=== PATIENT | female | born 1960 | race Caucasian/White ===

== ENCOUNTER → 2016-08-03 | Outpatient (CLI) | payer BC | END | disposition home or self-care (01) | LOC: C.LABMFLN 16:24 | PROVIDERS: ATTEND Family Medicine | DX: R35.0 Frequency of micturition (principal) ==

== ENCOUNTER → 2016-08-08 | Outpatient (CLI) | payer BC ==
[2016-08-08 18:53] LABS: BLOOD UREA NITROGEN 17 mg/dl (7-18); BUN/CREATININE RATIO 20.5 (10-20); CALCIUM 9.3 mg/dl (8.5-10.1); CARBON DIOXIDE 33 mmol/L (21-32); CHLORIDE 102 mmol/L (98-107); CREATININE 0.83 mg/dl (0.60-1.20); GLUCOSE 80 mg/dl (70-99); POTASSIUM 3.9 mmol/L (3.5-5.1); SODIUM 141 mmol/L (136-145)
[2016-08-08 19:03] LABS: PHOSPHORUS 3.6 mg/dl (2.5-4.9)
== END | disposition home or self-care (01) ==
LOC: C.LABMFLN 13:54
PROVIDERS: ATTEND Family Medicine
DX: E03.9 Hypothyroidism, unspecified (principal); I95.1 Orthostatic hypotension

== ENCOUNTER → 2016-08-11 | Outpatient (CLI) | payer BC ==
--- NOTE | 2016-08-11 17:25 | EEG Procedure Note ---
EEG Procedure Note Date of Service Aug 11, 2016. Start / End Times Start Time: 1:51 PM End Time: to 11 PM Referring Physician Fanny Malik MD History This is a 56-year-old female who presents after a syncopal collapse. EEG for further evaluation of possible seizure etiology. Pertinent home medications: No antiepileptic medications are sedating medications reported Description This is a 21 electrode EEG with a single channel dedicated to limited EKG. The electrodes were placed in accordance with the International 10-20 system. At the start of the recording the patient was in an awake state. Background was well organized and composed of symmetric mixed alpha and beta frequencies. There was a symmetric well-formed moderate amplitude 10-11 Hz posterior dominant rhythm that was reactive to eye opening and closure. Hyperventilation was not done. Intermittent photic stimulation at various frequencies produced no abnormalities. Drowsiness was indicated by loss of muscle artifact and slowing of the background rhythm. There was no sleep transients. During the awake and drowsy state there was noted to be occasional intermittent theta slowing in the right posterior head region. Interpretation This is an abnormal routine EEG secondary to mild intermittent slowing in the right posterior head region. There was no electrographic seizures or epileptiform discharges. Clinical Correlation This EEG indicates a functional or structural cerebral dysfunction in the right posterior head region. An EEG does not rule out epilepsy if there is a strong clinical suspicion.
== END | disposition home or self-care (01) ==
LOC: C.NEUR 13:32
PROVIDERS: ATTEND Family Medicine
DX: R55 Syncope and collapse (principal)

== ENCOUNTER → 2016-08-16 | Outpatient (CLI) | payer BC ==
[~2016-08-16] MED LIST: GADAVIST IV PRN
--- NOTE | 2016-08-16 16:48 | DIAGNOSTIC IMAGING REPORT ---
MRI OF THE BRAIN WITHOUT AND WITH IV CONTRAST SEIZURE PROTOCOL CLINICAL HISTORY: R55 Syncope and [id number] EEG, [id number] COMPARISON STUDY: No previous studies for comparison. TECHNIQUE: Utilizing a 1.5 Marquita magnet and dedicated coil, multiplanar, multiecho imaging of the brain was performed pre and postcontrast administration. IV administration of 5 mL of Gadavist contrast was uneventful. Thin cut coronal T2 imaging was performed according to seizure protocol. FINDINGS: Several tiny foci of increased signal within the periventricular deep white matter regions. Diffusion-weighted images are unremarkable. Ventricular system is midline. Basal cisterns are unremarkable. There is no evidence for midline shift. Postcontrast images are negative for an enhancing lesion. IMPRESSION: Minimal chronic small vessel change. Otherwise negative MRI of the brain. Electronically signed by: Anthony Magaña M.D. 08/16/2016 4:46 PM Dictated Date/Time: 08/16/2016 4:43 PM
== END | disposition home or self-care (01) ==
LOC: C.MRI 15:58
PROVIDERS: ATTEND Family Medicine
DX: R55 Syncope and collapse (principal); R94.01 Abnormal electroencephalogram [EEG]

== ENCOUNTER → 2016-08-30 | Outpatient (CLI) | payer BC ==
--- NOTE | 2016-08-30 15:08 | DIAGNOSTIC IMAGING REPORT ---
BILATERAL CAROTID DOPPLER STUDY HISTORY: Mental status change R55 Syncope and [id number] EEG, [id number] COMPARISON: None. TECHNIQUE: Real-time, grayscale, and color Doppler sonography of the carotid arteries was performed. Imaging reviewed in the transverse and longitudinal planes. All measurements were calculated based on NASCET criteria. FINDINGS: Antegrade flow is seen in the bilateral vertebral arteries. The brachial pressures are hemodynamically similar. Mild plaque formation bilaterally The peak systolic velocity within the right ICA is 68. The right systolic ratio is 0.6. The peak systolic velocity within the left ICA is 86. The left systolic ratio is 0.7. IMPRESSION: No hemodynamically significant stenosis seen within the carotid arteries. Minimal/mild plaque formation bilaterally Electronically signed by: Anthony Magaña M.D. 08/30/2016 3:06 PM Dictated Date/Time: 08/30/2016 3:06 PM
== END | disposition home or self-care (01) ==
LOC: C.ULTR 13:34
PROVIDERS: ATTEND Psychiatry & Neurology Neurology
DX: R94.01 Abnormal electroencephalogram [EEG] (principal); R55 Syncope and collapse

== ENCOUNTER → 2017-01-18 | Outpatient (CLI) | payer BC ==
--- NOTE | 2017-01-19 14:03 | MAMMOGRAPHY REPORT ---
BILATERAL DIGITAL SCREENING MAMMOGRAM TOMOSYNTHESIS WITH CAD: 01/18/2017 CLINICAL HISTORY: Routine screening. Patient has no complaints. TECHNIQUE: Breast tomosynthesis in addition to standard 2D mammography was performed. Current study was also evaluated with a Computer Aided Detection (CAD) system. COMPARISON: Comparison is made to exams dated: 01/13/2016 mammogram, 01/07/2015 mammogram, 01/13/2010 robert mogram, 01/19/2011 mammogram, 01/25/2012 mammogram, and 02/14/2013 mammogram - [facility] er. BREAST COMPOSITION: The tissue of both breasts is heterogeneously dense, which may obscure small mas ses. FINDINGS: No suspicious masses, calcifications, or areas of architectural distortion are noted in ei ther breast. There has been no significant interval change compared to prior exams. Scattered bilater al benign-appearing calcifications are not significantly changed. IMPRESSION: ACR BI-RADS CATEGORY 2: BENIGN There is no mammographic evidence of malignancy. A 1 year screening mammogram is recommended. The pa tient will receive written notification of the results. Approximately 10% of breast cancers are not detected with mammography. A negative mammographic report should not delay biopsy if a clinically suggestive mass is present. Ciera Shelton M.D. /:01/19/2017 07:38:12 [employer] Labor: Mago CUEVAS)(M), [facility] letter sent: Normal 1/2 BI-RADS Code: ACR BI-RADS Category 2: Benign
== END | disposition home or self-care (01) ==
LOC: C.MAMM 16:57
PROVIDERS: ATTEND Family Medicine
DX: Z12.31 Encounter for screening mammogram for malignant neoplasm of breast (principal)

== ENCOUNTER → 2017-01-30 | Outpatient (CLI) | payer BC ==
[2017-01-30 14:03] LABS: CHOLESTEROL/HDL RATIO 5.5
== END | disposition home or self-care (01) ==
LOC: C.LABMFLN 07:18
PROVIDERS: ATTEND Family Medicine
DX: E78.5 Hyperlipidemia, unspecified (principal)

== ENCOUNTER → 2017-07-10 | Outpatient (CLI) | payer BC | END | disposition home or self-care (01) | LOC: C.LABMFLN 07:11 | PROVIDERS: ATTEND Family Medicine | DX: E78.5 Hyperlipidemia, unspecified (principal) ==

== ENCOUNTER → 2018-01-24 | Outpatient (CLI) | payer BC ==
--- NOTE | 2018-01-25 15:40 | MAMMOGRAPHY REPORT ---
BILATERAL DIGITAL SCREENING MAMMOGRAM TOMOSYNTHESIS WITH CAD: 01/24/2018 CLINICAL HISTORY: Routine screening. Patient has no complaints. TECHNIQUE: Bilateral CC and MLO 2D and tomosynthesis images were obtained. Current study was also ev aluated with a Computer Aided Detection (CAD) system. COMPARISON: Comparison is made to exams dated: 01/18/2017 mammogram, 01/13/2016 mammogram, 01/07/2015 robert mogram, 01/03/2014 mammogram, 08/14/2013 mammogram, and 02/14/2013 mammogram - [facility] BREAST COMPOSITION: The tissue of both breasts is heterogeneously dense, which may obscure small mass es. FINDINGS: There are possible clustered microcalcifications in the left upper outer posterior breast f or which additional spot magnification views are recommended. No other suspicious mass, architectural distortion or cluster of microcalcifications is seen. IMPRESSION: ACR BI-RADS CATEGORY 0: INCOMPLETE EVALUATION: NEED ADDITIONAL IMAGING EVALUATION The possible clustered microcalcifications in the left upper outer breast need additional evaluation. The patient will be called to schedule an appointment. Some breast cancers are not detected with mammography. A negative mammographic report should not tom y biopsy if a clinically suggestive mass is present. Tonia Grewal M.D. ay/:01/24/2018 17:09:31 [employer] Chief Scientist: RT Cris(Domi)(M)(BD), [facility] letter sent: Addl Imaging 0 BI-RADS Code: ACR BI-RADS Category 0: Incomplete Evaluation: Need Additional Imaging Evaluation
== END | disposition home or self-care (01) ==
LOC: C.MAMM 16:44
PROVIDERS: ATTEND Family Medicine
DX: Z12.31 Encounter for screening mammogram for malignant neoplasm of breast (principal); R92.0 Mammographic microcalcification found on diagnostic imaging of breast

== ENCOUNTER → 2018-02-02 | Outpatient (CLI) | payer BC ==
--- NOTE | 2018-02-02 14:29 | MAMMOGRAPHY REPORT ---
UNILATERAL LEFT DIGITAL DIAGNOSTIC MAMMOGRAM: 02/02/2018 CLINICAL HISTORY: Callback from screening mammogram for left breast calcifications. TECHNIQUE: Spot magnification left CC and ML views were obtained. COMPARISON: Comparison is made to exams dated: 01/24/2018 mammogram, 01/18/2017 mammogram, 01/13/2016 robert mogram, 01/07/2015 mammogram, 01/03/2014 ultrasound, and 08/14/2013 ultrasound - [facility] nter. BREAST COMPOSITION: The tissue of left breast is heterogeneously dense, which may obscure small missy s. FINDINGS: Spot magnification views demonstrate faint punctate calcifications seen in a regional distribution th roughout the left upper outer quadrant. The calcifications do not appear significantly changed bambi red to multiple prior exams such as the 2013 and 2012 exams, when accounting for differences in mammo graphic technique currently using Beam. equipment, previously using Thwapr agreement). Additionally, a t least one of the calcifications demonstrates layering on the lateral view suggestive of milk of ron cium. Given the morphology and distribution and given the probable stability for many years, the ron cifications are probably benign. IMPRESSION: ACR-BI-RADS CATEGORY 3: PROBABLY BENIGN Regional faint punctate calcifications throughout the left upper outer quadrant are likely stable com pared to multiple prior exams including the 2012 exam, and are probably benign. Recommend follow-up diagnostic tomosynthesis mammograms of the left breast in 6 months to confirm stability on spot magni fication views. The patient has been verbally notified of the results. Some breast cancers are not detected with mammography. A negative mammographic report should not tom y biopsy if a clinically suggestive mass is present. Ciera Shelton M.D. ah/:02/02/2018 10:56:22 Quoter: RT Giselle(R)(M), [facility] letter sent: Follow Up Recommended 3 BI-RADS Code: ACR-BI-RADS Category 3: Probably Benign
== END | disposition home or self-care (01) ==
LOC: C.MAMM 10:09
PROVIDERS: ATTEND Family Medicine
DX: R92.1 Mammographic calcification found on diagnostic imaging of breast (principal)

== ENCOUNTER 2021-12-12 08:52 | Inpatient (IN) ==
[2021-12-12] MEDS ORDERED: SODIUM CHLORIDE 0.9% 1000ML 1,000 ML IV STA (09:22)
[2021-12-12] MEDS ORDERED: ONDANSETRON INJ 2 MG/ML 2 ML VIAL IV STA (09:22)
[2021-12-12] MEDS ORDERED: MoRPHine SULFATE 4 MG/ML 1 ML CARP\\VIAL IV STA (09:22)
[2021-12-12 09:33] LABS: Basophils # (auto) 0.03 K/uL (0-0.2); Basophils % (auto) 0.3 %; Eosinophils # (auto) 0.09 K/uL (0-0.5); Hematocrit (blood only) 41.3 % (37-47); Hemoglobin 13.7 g/dL (12.0-16.0); Immature Granulocytes # (auto) 0.02 K/uL (0.00-0.02); Immature Granulocytes % (auto) 0.2 %; Lymphocytes # (auto) 1.16 K/uL (1.2-3.4); Lymphocytes % (auto) 13.1 %; Mean Corpuscular Hemoglobin 31.9 pg (25-34); Mean Corpuscular Hgb Conc 33.2 g/dL (32-36); Mean Corpuscular Volume 96.3 fL (80-100); Mean Platelet Volume 10.4 fL (7.4-10.4); Monocytes % (auto) 6.8 %; Neutrophils # (auto) 6.98 K/uL (1.4-6.5); Neutrophils % (auto) 78.6 %; Platelet Count 262 K/uL (130-400); RDW Coefficient of Variation 12.3 % (11.5-14.5); RDW Standard Deviation 42.9 fL (36.4-46.3); Red Blood Count 4.29 M/uL (4.2-5.4); White Blood Count 8.88 K/uL (4.8-10.8)
[2021-12-12 09:42] LABS: Albumin Globulin Ratio 1.2 (0.9-2); Albumin Level 4.2 gm/dl (3.4-5.0); BUN Creatinine Ratio 19.7 (10-20); Bilirubin,Total 0.5 mg/dl (0.2-1.0); Calcium 9.9 mg/dl (8.5-10.1); Creatinine Clr Calc Pharmacy 80.7 ml/min; Est GFR (African American) 110.5 ml/min; Est GFR (Non-African American) 95.3 ml/min; Globulin 3.4 gm/dl (2.5-4.0); Potassium 4.2 mmol/L (3.5-5.1); Total Protein 7.6 gm/dl (6.0-8.3)
[2021-12-12] MEDS ORDERED: OPTIRAY 320 100ml IV ONE (09:53)
--- NOTE | 2021-12-12 10:11 | CT Scan Report ---
CT OF THE ABDOMEN AND PELVIS WITH CONTRAST CLINICAL HISTORY: Lower abdominal pain. Diverticulitis. COMPARISON STUDY: None. TECHNIQUE: Following IV administration of 93 mL of Optiray, axial images of the abdomen and pelvis we re obtained from the lung bases to the proximal femurs. Images were reviewed in the axial, sagittal, and coronal planes. IV contrast was administered without complication. Automated exposure control wa s utilized for the study. A dose lowering technique was utilized adhering to the principles of ALARA . CT DOSE: 260.05 mGy.cm FINDINGS: Lung bases are unremarkable. No pneumatosis, free air or portal venous gas is present. Live r, spleen, adrenal glands, kidneys are unremarkable. There is no biliary or pancreatic ductal dilatat ion. Several small hypodense lesions within the pancreas measure near water attenuation. The largest is a 1.3 cm lesion within the pancreatic body on axial image 103 of 396. The appendix is surgically a bsent. There is extensive sigmoid diverticulosis. Note is made of wall thickening of the mid to dista l sigmoid colon with moderate pericolonic stranding and a small amount of fluid. There is an associat ed 1.4 cm rim-enhancing collection along the wall of the sigmoid colon consistent with a small absces s. No additional fluid collections are present. There is no extraluminal gas. Major vasculature is pa tent. There is no lymphadenopathy. No acute fracture or suspicious lesion within the visualized skele gior structures is present. There is severe disc space narrowing at L4-L5 with osteophytosis. IMPRESSION: 1. Findings consistent with acute sigmoid diverticulitis. Sigmoid colon wall thickening with moderate inflammation. Small 1.4 cm diverticular abscess. 2. A few small cystic pancreatic lesions. 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 Nonemergent patie nt pancreatic protocol MRI could be obtained. ACT 112: Negative or not required by law. Electronically signed by: Vladimir Garza M.D. 12/12/2021 10:08 AM
[2021-12-12] MEDS ORDERED: metroNIDAZOLE 500 MG/100 ML BAG IV STA (10:51)
[2021-12-12] MEDS ORDERED: CIPROFLOXACIN / D5W 400 MG/200 ML BAG IV STA (10:51)
[2021-12-12 10:54] LABS: Appearance Urine Clear (Clear); Bacteria Urine Automated 4+ (Negative); Bilirubin Urine Negative (Negative); Blood Urine Negative (Negative); Color Urine Yellow; Epithelial Cell Urine Auto 0-5 /lpf (0-5); Glucose Urine UA Negative (Negative); Ketones Urine Negative (Negative); Leukocyte Esterase Urine 2+ (Negative); Nitrite Urine Positive (Negative); Protein Urine Negative (Negative); RBC Urine Automated 0-4 /hpf (0-4); Specific Gravity Urine 1.039 (1.000-1.030); Urobilinogen Urine Negative (Negative); WBC Urine Automated >30 /hpf (0-5); pH Urine 8.5 (4.5-7.5)
--- NOTE | 2021-12-12 11:47 | History & Physical Report ---
Date of Service December 12, 2021 Assessment & Plan (1) Acute diverticulitis: Plan: CT a/p on admission showed "acute sigmoid diverticulitis with small 1.4 cm diverticular abscess. Seen by surgery when I was in room. No need for sx or drainage at this time. - Continue Cipro/Flagyl due to penicillin adverse reaction (hives to amoxicillin 4-5 years ago) - NPO with sips/chips; advance diet as tolerated - Pain and nausea control - Gen surg consulted; will follow (2) Hyperlipidemia: Plan: - Continue statin (3) Hypothyroidism: Plan: TSH was 1.7 in 02/2021. No signs/symptoms of hypo-/hyperthyroidism. - Continue home Synthroid 100 mcg (4) Anxiety: Plan: - Continue buspirone (5) DVT prophylaxis: Plan: Lovenox 40 mg SQ daily History of Present Illness Primary Care Provider: Fanny Malik MD 61yo F w/ hx of HLD and hypothyroidism who presents with acute diverticulitis. Has been having LLQ pain for about 2 1/2 weeks. Overall, it is intermittent, most often after eating or before defecation. Initially, she attributed it to lactose intolerance as the pain seemed worse after eating ice cream. She would eat it the night before, then wake up with sharp, cramping pains in the morning. It would be severe until she had a bowel movement, then resolve. She would take Advil for the pain as well. However, during the day, she could largely function normally. Yesterday, she ate ice cream and woke up this morning with another round of severe pain worse than priors which prompted her arrival to the ER. She denies nausea, vomiting, or change in appetite. She denies fevers/chills, sweats. She denies any hematochezia or melenic stools. She has had some mildly looser stools, but not consistently diarrhea. Allergies Allergy/AdvReac Type Severity Reaction Status Date / Time atorvastatin Allergy Verified 02/26/21 07:21 simvastatin Allergy Verified 02/26/21 07:21 amoxicillin AdvReac Mild Hives Verified 12/12/21 11:38 Home Medications Medication Instructions Recorded Confirmed Type calcium carbonate 600 mg-vitamin 1 cap PO DAILY #90 cap 02/07/19 02/26/21 Rx D3 10 mcg (400 unit) capsule levothyroxine 100 mcg tablet 100 mcg PO DAILY #90 tab 08/18/20 02/26/21 Rx buspirone 5 mg tablet 5 mg PO BID #180 tab 11/07/20 02/26/21 Rx rosuvastatin 5 mg tablet 5 mg PO HS #90 tab 08/23/21 Rx Past Med/Surg History Medical History Anxiety Colon polyps Hyperlipidemia Hypothyroidism Surgical History H/O colonoscopy 07/29/2019 repeat 5yrs H/O dilation and curettage History of ear surgery S/P appendectomy Family History Father Pure hypercholesterolemia Acute myocardial infarction Mother Diabetes Grandfather Prostate cancer Sister Glaucoma Social History Smoking Status: Never smoker Second Hand Exposure: No; Hx Alcohol Use: Yes (little) Hx Substance Use: No Preferred Language: Jamaican Visual Impairment: No Limitations Hearing Ability: Normal Director Building Required: No Beliefs That Will Affect Care: None marital status: Current Living Situation: Spouse current occupational status: employed How many Children do You have: 2 Feels Safe at Home: Yes Childhood Exposure to Second-Hand Smoke: No caffeine: Yes during the past year weight has: remained stable Dental Care, Regularly: Yes Physical Activity Frequency: 5-6 Times per Week Seatbelt Use: always Sunscreen Use: Yes Assistive Devices: Glasses Review of Systems Review of Systems: All systems reviewed & are unremarkable except as noted in HPI & below Physical Exam Constitutional: WD/WN, vitals as above Eyes: EOM intact bilaterally; no conjunctival abnormality ENMT: external ear and nose normal, oropharynx normal Neck: trachea midline, no thyromegaly normal visual inspection Respiratory: normal respiratory effort, lungs clear to auscultation no respiratory distress Cardiovascular: RRR, no murmur, no edema Gastrointestinal (Abdomen): Inspection/Auscultation: abdomen normal to inspection and + hypoactive bowel sounds; abdomen not distended Percussion/Palpation: + abdomen tender (Very mild, LLQ) and abdomen soft; no guarding and abdomen not rigid Musculoskeletal: no cyanosis or clubbing, extremities motor strength 5/5 Skin: no rashes, warm and dry Neurologic: moves all extremities and awake Psychiatric: Orientation: alert, oriented to person and cooperative Results & Data Results & Data ([facility]) Vital Signs (Past 12 Hours) Vital Signs Temp Pulse Pulse Resp BP BP Pulse Ox 12/12/21 11:00 79 16 132/76 97 12/12/21 09:22 95 12/12/21 08:52 37.2 C 86 84 16 147/73 H 147/73 H 97 Code Status & VTE Plan VTE Prophylaxis Plan VTE Prophylaxis will be ordered: Yes PG Care Time/CCT Total # of Minutes Spent Total Time Spent with Patient: Total time spent is greater than 50% in coordination of care (as documented) at patient's floor/unit and/or counseling patient: Coding Level of Care Code 58167 Initial Inpt Care Lvl 3 Diagnoses Acute diverticulitis K57.92 Hyperlipidemia E78.5 Hypothyroidism E03.9 Anxiety F41.9 DVT prophylaxis Z29.9
[2021-12-12 12:29] LABS: Adenovirus F 40/41 PCR Not Detected (NotDetected); Astrovirus PCR Not Detected (NotDetected); Campylobacter PCR Not Detected (NotDetected); Clostridium diff Toxin A/B PCR Not Detected (NotDetected); Cryptosporidium PCR Not Detected (NotDetected); Cyclospora cayetanensis PCR Not Detected (NotDetected); Entamoeba histolytica PCR Not Detected (NotDetected); Enteroaggregative E.coli(EAEC) Not Detected (NotDetected); Enteropathogenic E.coli (EPEC) Not Detected (NotDetected); Enterotoxigenic E.coli (ETEC) Not Detected (NotDetected); Giardia lamblia PCR Not Detected (NotDetected); Norovirus GI/GII PCR Not Detected (NotDetected); Plesiomonas shigelloides PCR Not Detected (NotDetected); Rotavirus A PCR Not Detected (NotDetected); Salmonella PCR Not Detected (NotDetected); Sapovirus PCR Not Detected (NotDetected); Shiga-like Toxin E.coli (STEC) Not Detected (NotDetected); Shigella/Enteroinvasive E.coli Not Detected (NotDetected); Vibrio cholerae PCR Not Detected (NotDetected); Vibrio species PCR Not Detected (NotDetected); Yersinia enterocolitica PCR Not Detected (NotDetected)
--- NOTE | 2021-12-12 13:15 | Surgery Consultation ---
Date of Consultation December 12, 2021 Assessment & Plan (1) Acute diverticulitis: 61-year-old woman with acute diverticulitis with microperforation and 1.4 cm abscess in the mesentery. No surgical intervention is required at this time. The abscess is too small to consider for IR drainage. We will place her on IV antibiotics and monitor. Clear liquid diet. We will follow along. If she fails to improve or worsens, she will need to be rescanned in would potentially be a candidate for interventional radiology drainage. We will continue to follow. History of Present Illness Reason for Consultation: Diverticulitis Requesting Physician: ED physician Attending Physician: ED physician History of Present Illness 61-year-old woman presents with 2-week history of on and off lower abdominal pain. She states the pain has been coming and going however got worse yesterda y. She did do a 20 mile bike ride yesterday as well. She denies fevers and chills. She denies nausea or vomiting. CT scan demonstrates diverticulitis with a small 1 cm to 1.5 cm abscess in the mesentery. No other complaints. Allergies Allergy/AdvReac Type Severity Reaction Status Date / Time atorvastatin Allergy Verified 02/26/21 07:21 simvastatin Allergy Verified 02/26/21 07:21 amoxicillin AdvReac Mild Hives Verified 12/12/21 11:38 Home Medications Medication Instructions Recorded Confirmed Type calcium carbonate 600 mg-vitamin 1 cap PO DAILY #90 cap 02/07/19 02/26/21 Rx D3 10 mcg (400 unit) capsule levothyroxine 100 mcg tablet 100 mcg PO DAILY #90 tab 08/18/20 02/26/21 Rx buspirone 5 mg tablet 5 mg PO BID #180 tab 11/07/20 02/26/21 Rx rosuvastatin 5 mg tablet 5 mg PO HS #90 tab 08/23/21 Rx Patient History Medical History Anxiety Colon polyps Hyperlipidemia Hypothyroidism Surgical History H/O colonoscopy 07/29/2019 repeat 5yrs H/O dilation and curettage History of ear surgery S/P appendectomy Family History Father Pure hypercholesterolemia Acute myocardial infarction Mother Diabetes Grandfather Prostate cancer Sister Glaucoma Social History Smoking Status: Never smoker Second Hand Exposure: No; Hx Alcohol Use: Yes (little) Hx Substance Use: No Preferred Language: [place] Visual Impairment: No Limitations Hearing Ability: Normal Hearing And Speech Assistant Required: No Beliefs That Will Affect Care: None marital status: Current Living Situation: Spouse current occupational status: employed How many Children do You have: 2 Feels Safe at Home: Yes Childhood Exposure to Second-Hand Smoke: No caffeine: Yes during the past year weight has: remained stable Dental Care, Regularly: Yes Physical Activity Frequency: 5-6 Times per Week Seatbelt Use: always Sunscreen Use: Yes Assistive Devices: Glasses Review of Systems Review of Systems: All systems reviewed & are unremarkable except as noted in HPI & below Physical Exam Constitutional: WD/WN, vitals as above Neck: trachea midline, no thyromegaly Respiratory: normal respiratory effort, lungs clear to auscultation Cardiovascular: RRR, no murmur, no edema Gastrointestinal (Abdomen): normal bowel sounds, soft, nontender, no hepatosplenomegaly Musculoskeletal: Extremities: no cyanosis and no clubbing Skin: no rashes, warm and dry Psychiatric: A+Ox3, euthymic affect Results & Data ([facility]) Vital Signs (Past 12 Hours) Vital Signs Temp Pulse Pulse Resp BP BP Pulse Ox 12/12/21 13:11 78 18 121/67 95 12/12/21 11:00 79 16 132/76 97 12/12/21 09:22 95 12/12/21 08:52 37.2 C 86 84 16 147/73 H 147/73 H 97 Laboratory Results 12/12/21 12/12/21 12/12/21 Range/Units 11:32 10:40 10:40 WBC (4.8-10.8) K/uL RBC (4.2-5.4) M/uL Hgb (12.0-16.0) g/dL Hct (37-47) % MCV (80-100) fL MCH (25-34) pg MCHC (32-36) g/dL RDW Std Deviation (36.4-46.3) fL RDW Coeff of Yessy (11.5-14.5) % Plt Count (130-400) K/uL MPV (7.4-10.4) fL Immature Gran % (Auto) % Neut % (Auto) % Lymph % (Auto) % [place] % (Auto) % Eos % (Auto) % Baso % (Auto) % Neut # (Auto) (1.4-6.5) K/uL Lymph # (Auto) (1.2-3.4) K/uL [place] # (Auto) (0.11-0.59) K/uL Eos # (Auto) (0-0.5) K/uL Baso # (Auto) (0-0.2) K/uL Immature Gran # (Auto) (0.00-0.02) K/uL Sodium (136-145) mmol/L Potassium (3.5-5.1) mmol/L Chloride (98-107) mmol/L Carbon Dioxide (21-32) mmol/L Anion Gap (3-11) BUN (6-23) mg/dl Creatinine (0.6-1.2) mg/dl Est Cr Clr Drug Dosing ml/min Est GFR ( Amer) ml/min Est GFR (Non-Af Amer) ml/min BUN/Creatinine Ratio (10-20) Glucose (70-99(Fasting)) mg/dl Calcium (8.5-10.1) mg/dl Total Bilirubin (0.2-1.0) mg/dl AST (13-39) U/L ALT (7-52) U/L Alkaline Phosphatase (34-104) U/L Total Protein (6.0-8.3) gm/dl Albumin (3.4-5.0) gm/dl Globulin (2.5-4.0) gm/dl Albumin/Globulin Ratio (0.9-2) Lipase (11-82) U/L Urine Color Yellow Urine Appearance Clear (Clear) Urine pH 8.5 H (4.5-7.5) Ur Specific [place] 1.039 H (1.000-1.030) Urine Protein Negative (Negative) Urine Glucose (UA) Negative (Negative) Urine Ketones Negative (Negative) Urine Blood Negative (Negative) Urine Nitrite Positive A (Negative) Urine Bilirubin Negative (Negative) Urine Urobilinogen Negative (Negative) Ur Leukocyte Esterase 2+ H (Negative) Urine WBC (Auto) >30 H (0-5) /hpf Urine RBC (Auto) 0-4 (0-4) /hpf U Hyaline Cast (Auto) 1-5 (0-5) /lpf U Epithel Cells (Auto) 0-5 (0-5) /lpf Urine Bacteria (Auto) 4+ H (Negative) Stl C. cayetanensis PCR Not Detected (NotDetected) Stool Rotavirus A PCR Not Detected (NotDetected) Stl Adenov F 40/41 PCR Not Detected (NotDetected) Stool Astrovirus (PCR) Not Detected (NotDetected) Stool Campylobacter PCR Not Detected (NotDetected) Stl C. diff Tox A/B PCR Not Detected (NotDetected) Stool Cryptosporidium PCR Not Detected (NotDetected) Stl E.coli Shiga Tox PCR Not Detected (NotDetected) Stl Enterotoxigenic E PCR Not Detected (NotDetected) Stool EPEC (PCR) Not Detected (NotDetected) Stool EAEC (PCR) Not Detected (NotDetected) Stl E. histolytica PCR Not Detected (NotDetected) Stool Giardia Lamblia PCR Not Detected (NotDetected) Stool Salmonella PCR Not Detected (NotDetected) Stool Sapovirus (PCR) Not Detected (NotDetected) Stl P. shigelloides PCR Not Detected (NotDetected) Stl Shigella/EIEC PCR Not Detected (NotDetected) St Y.enterocolitica PCR Not Detected (NotDetected) Stool Vibrio (PCR) Not Detected (NotDetected) Stl Vibrio cholerae PCR Not Detected (NotDetected) Stl Norovirus GI/GII PCR Not Detected (NotDetected) SARS-CoV-2, RNA, NAAT NEGATIVE (NEGATIVE) 12/12/21 12/12/21 Range/Units 09:14 09:14 WBC 8.88 (4.8-10.8) K/uL RBC 4.29 (4.2-5.4) M/uL Hgb 13.7 (12.0-16.0) g/dL Hct 41.3 (37-47) % MCV 96.3 (80-100) fL MCH 31.9 (25-34) pg MCHC 33.2 (32-36) g/dL RDW Std Deviation 42.9 (36.4-46.3) fL RDW Coeff of Yessy 12.3 (11.5-14.5) % Plt Count 262 (130-400) K/uL MPV 10.4 (7.4-10.4) fL Immature Gran % (Auto) 0.2 % Neut % (Auto) 78.6 % Lymph % (Auto) 13.1 % [place] % (Auto) 6.8 % Eos % (Auto) 1.0 % Baso % (Auto) 0.3 % Neut # (Auto) 6.98 H (1.4-6.5) K/uL Lymph # (Auto) 1.16 L (1.2-3.4) K/uL [place] # (Auto) 0.60 H (0.11-0.59) K/uL Eos # (Auto) 0.09 (0-0.5) K/uL Baso # (Auto) 0.03 (0-0.2) K/uL Immature Gran # (Auto) 0.02 (0.00-0.02) K/uL Sodium 140 (136-145) mmol/L Potassium 4.2 (3.5-5.1) mmol/L Chloride 101 (98-107) mmol/L Carbon Dioxide 32 (21-32) mmol/L Anion Gap 7 (3-11) BUN 13 (6-23) mg/dl Creatinine 0.66 (0.6-1.2) mg/dl Est Cr Clr Drug Dosing 80.7 ml/min Est GFR ( Amer) 110.5 ml/min Est GFR (Non-Af Amer) 95.3 ml/min BUN/Creatinine Ratio 19.7 (10-20) Glucose 75 (70-99(Fasting)) mg/dl Calcium 9.9 (8.5-10.1) mg/dl Total Bilirubin 0.5 (0.2-1.0) mg/dl AST 35 (13-39) U/L ALT 20 (7-52) U/L Alkaline Phosphatase 84 (34-104) U/L Total Protein 7.6 (6.0-8.3) gm/dl Albumin 4.2 (3.4-5.0) gm/dl Globulin 3.4 (2.5-4.0) gm/dl Albumin/Globulin Ratio 1.2 (0.9-2) Lipase 23 (11-82) U/L Urine Color Urine Appearance (Clear) Urine pH (4.5-7.5) Ur Specific [place] (1.000-1.030) Urine Protein (Negative) Urine Glucose (UA) (Negative) Urine Ketones (Negative) Urine Blood (Negative) Urine Nitrite (Negative) Urine Bilirubin (Negative) Urine Urobilinogen (Negative) Ur Leukocyte Esterase (Negative) Urine WBC (Auto) (0-5) /hpf Urine RBC (Auto) (0-4) /hpf U Hyaline Cast (Auto) (0-5) /lpf U Epithel Cells (Auto) (0-5) /lpf Urine Bacteria (Auto) (Negative) Stl C. cayetanensis PCR (NotDetected) Stool Rotavirus A PCR (NotDetected) Stl Adenov F 40/41 PCR (NotDetected) Stool Astrovirus (PCR) (NotDetected) Stool Campylobacter PCR (NotDetected) Stl C. diff Tox A/B PCR (NotDetected) Stool Cryptosporidium PCR (NotDetected) Stl E.coli Shiga Tox PCR (NotDetected) Stl Enterotoxigenic E PCR (NotDetected) Stool EPEC (PCR) (NotDetected) Stool EAEC (PCR) (NotDetected) Stl E. histolytica PCR (NotDetected) Stool Giardia Lamblia PCR (NotDetected) Stool Salmonella PCR (NotDetected) Stool Sapovirus (PCR) (NotDetected) Stl P. shigelloides PCR (NotDetected) Stl Shigella/EIEC PCR (NotDetected) St Y.enterocolitica PCR (NotDetected) Stool Vibrio (PCR) (NotDetected) Stl Vibrio cholerae PCR (NotDetected) Stl Norovirus GI/GII PCR (NotDetected) SARS-CoV-2, RNA, NAAT (NEGATIVE) Diagnostic Findings CT OF THE ABDOMEN AND PELVIS WITH CONTRAST CLINICAL HISTORY: Lower abdominal pain. Diverticulitis. COMPARISON STUDY: None. TECHNIQUE: Following IV administration of 93 mL of Optiray, axial images of the abdomen and pelvis were obtained from the lung bases to the proximal femurs. Images were reviewed in the axial, sagittal, and coronal planes. IV contrast was administered without complication. Automated exposure control was utilized for the study. A dose lowering technique was utilized adhering to the principles of ALARA. CT DOSE: 260.05 mGy.cm FINDINGS: Lung bases are unremarkable. No pneumatosis, free air or portal venous gas is present. Liver, spleen, adrenal glands, kidneys are unremarkable. There is no biliary or pancreatic ductal dilatation. Several small hypodense lesions within the pancreas measure near water attenuation. The largest is a 1.3 cm lesion within the pancreatic body on axial image 103 of 396. The appendix is surgically absent. There is extensive sigmoid diverticulosis. Note is made of wall thickening of the mid to distal sigmoid colon with moderate pericolonic stranding and a small amount of fluid. There is an associated 1.4 cm rim- enhancing collection along the wall of the sigmoid colon consistent with a small abscess. No additional fluid collections are present. There is no extraluminal gas. Major vasculature is patent. There is no lymphadenopathy. No acute fracture or suspicious lesion within the visualized skeletal structures is present. There is severe disc space narrowing at L4-L5 with osteophytosis. IMPRESSION: 1. Findings consistent with acute sigmoid diverticulitis. Sigmoid colon wall thickening with moderate inflammation. Small 1.4 cm diverticular abscess. 2. A few small cystic pancreatic lesions. 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 Nonemergent patient pancreatic protocol MRI could be obtained.
[2021-12-12] MEDS ORDERED: ONDANSETRON INJ 2 MG/ML 2 ML VIAL IV PRN (16:31)
[2021-12-12] MEDS ORDERED: MoRPHine SULFATE 2 MG/ML CARP IV PRN (16:31)
[2021-12-12] MEDS ORDERED: MoRPHine SULFATE 4 MG/ML 1 ML CARP\\VIAL IV PRN (16:31)
[2021-12-12] MEDS ORDERED: ACETAMINOPHEN 325 MG TAB PO PRN (16:31)
[2021-12-12] MEDS: SODIUM CHLORIDE 0.9% 1000ML 1,000 ML IV SCH (17:06)
[2021-12-12] MEDS: metroNIDAZOLE 500 MG/100 ML BAG IV SCH (17:39)
[2021-12-12] MEDS: busPIRone 5 MG TAB PO SCH (20:20)
[2021-12-12] MEDS: ROSUVASTATIN CALCIUM 5 MG TAB PO SCH (20:20)
[2021-12-12] MEDS: CIPROFLOXACIN / D5W 400 MG/200 ML BAG IV SCH (23:18)
[2021-12-13] MEDS: metroNIDAZOLE 500 MG/100 ML BAG IV SCH ×3 (01:37→17:22)
[2021-12-13 06:09] LABS: Hemoglobin 12.3 g/dL (12.0-16.0); Mean Corpuscular Hemoglobin 32.4 pg (25-34); Mean Corpuscular Hgb Conc 33.2 g/dL (32-36); Mean Corpuscular Volume 97.4 fL (80-100); Mean Platelet Volume 10.3 fL (7.4-10.4); Platelet Count 252 K/uL (130-400); RDW Coefficient of Variation 12.1 % (11.5-14.5); RDW Standard Deviation 42.9 fL (36.4-46.3); White Blood Count 6.59 K/uL (4.8-10.8)
[2021-12-13 06:14] LABS: BUN Creatinine Ratio 21.8 (10-20); Calcium 8.9 mg/dl (8.5-10.1); Creatinine Clr Calc Pharmacy 96.8 ml/min; Est GFR (African American) 117.3 ml/min; Est GFR (Non-African American) 101.2 ml/min; Magnesium 1.9 mg/dl (1.7-2.4)
[2021-12-13] MEDS: LEVOTHYROXINE SODIUM 100 MCG TABLET PO SCH (06:21)
[2021-12-13] MEDS: SODIUM CHLORIDE 0.9% 1000ML 1,000 ML IV SCH ×2 (06:22→22:02)
[2021-12-13] MEDS: ENOXAPARIN INJ 40 MG/0.4 ML SYR SQ SCH (06:46)
--- NOTE | 2021-12-13 08:42 | Hospitalist Progress Note ---
Date of Service December 13, 2021 Assessment & Plan (1) Acute diverticulitis: Plan: Doing better, start clear liquids, continue conservative therapy (2) Hyperlipidemia: Plan: - Continue statin (3) Hypothyroidism: Plan: TSH was 1.7 in 02/2021. No signs/symptoms of hypo-/hyperthyroidism. - Continue home Synthroid 100 mcg (4) Anxiety: Plan: - Continue buspirone (5) DVT prophylaxis: Plan: Lovenox 40 mg SQ daily Admission and Anticipated Discharge Date Admission Date: December 12, 2021 Subjective Follow-up of abdominal pain, feels better, less pain Physical Exam Physical Exam: Constitutional and general: No acute distress, looks biologic age Head and face: No puffiness, atraumatic Eyes: No scleral icterus, extraocular movements normal Neck: Supple, no JVD Musculoskeletal: No acute joint swelling, no bony abnormalities Skin/dermatologic/integument: No rash, no purpura Hematologic and lymphatic: pallor +, no petechia Gastrointestinal/abdomen: Nondistended, soft, nonacute Neurologic: Cranial nerves intact, nonfocal Psychiatry: Awake, alert, pleasant, communicative Cardiovascular: Heart rhythm regular, no rub, no murmur, no gallop Respiratory: Chest movements equal, no use of accessory muscles, no adventitious sounds Extremities: No edema, no cyanosis Results & Data Results & Data ([facility]) Vital Signs (Past 12 Hours) Vital Signs Temp Pulse Resp BP Pulse Ox 12/13/21 07:34 36.8 C 82 18 124/74 97 12/12/21 21:16 36.7 C 77 16 115/73 94 Laboratory Results Laboratory Results - last 24 hr 12/12/21 12/12/21 12/12/21 09:14 09:14 10:40 WBC 8.88 RBC 4.29 Hgb 13.7 Hct 41.3 MCV 96.3 MCH 31.9 MCHC 33.2 RDW Std Deviation 42.9 RDW Coeff of Yessy 12.3 Plt Count 262 MPV 10.4 Immature Gran % (Auto) 0.2 Neut % (Auto) 78.6 Lymph % (Auto) 13.1 [place] % (Auto) 6.8 Eos % (Auto) 1.0 Baso % (Auto) 0.3 Neut # (Auto) 6.98 H Lymph # (Auto) 1.16 L [place] # (Auto) 0.60 H Eos # (Auto) 0.09 Baso # (Auto) 0.03 Immature Gran # (Auto) 0.02 Sodium 140 Potassium 4.2 Chloride 101 Carbon Dioxide 32 Anion Gap 7 BUN 13 Creatinine 0.66 Est Cr Clr Drug Dosing 80.7 Est GFR ( Amer) 110.5 Est GFR (Non-Af Amer) 95.3 BUN/Creatinine Ratio 19.7 Glucose 75 Calcium 9.9 Magnesium Total Bilirubin 0.5 AST 35 ALT 20 Alkaline Phosphatase 84 Total Protein 7.6 Albumin 4.2 Globulin 3.4 Albumin/Globulin Ratio 1.2 Lipase 23 Urine Color Urine Appearance Urine pH Ur Specific [place] Urine Protein Urine Glucose (UA) Urine Ketones Urine Blood Urine Nitrite Urine Bilirubin Urine Urobilinogen Ur Leukocyte Esterase Urine WBC (Auto) Urine RBC (Auto) U Hyaline Cast (Auto) U Epithel Cells (Auto) Urine Bacteria (Auto) Stl C. cayetanensis PCR Not Detected Stool Rotavirus A PCR Not Detected Stl Adenov F 40/41 PCR Not Detected Stool Astrovirus (PCR) Not Detected Stool Campylobacter PCR Not Detected Stl C. diff Tox A/B PCR Not Detected Stool Cryptosporidium PCR Not Detected Stl E.coli Shiga Tox PCR Not Detected Stl Enterotoxigenic E PCR Not Detected Stool EPEC (PCR) Not Detected Stool EAEC (PCR) Not Detected Stl E. histolytica PCR Not Detected Stool Giardia Lamblia PCR Not Detected Stool Salmonella PCR Not Detected Stool Sapovirus (PCR) Not Detected Stl P. shigelloides PCR Not Detected Stl Shigella/EIEC PCR Not Detected St Y.enterocolitica PCR Not Detected Stool Vibrio (PCR) Not Detected Stl Vibrio cholerae PCR Not Detected Stl Norovirus GI/GII PCR Not Detected SARS-CoV-2, RNA, NAAT 12/12/21 12/12/21 12/13/21 10:40 11:32 05:08 WBC 6.59 RBC 3.80 L Hgb 12.3 Hct 37.0 MCV 97.4 MCH 32.4 MCHC 33.2 RDW Std Deviation 42.9 RDW Coeff of Yessy 12.1 Plt Count 252 MPV 10.3 Immature Gran % (Auto) Neut % (Auto) Lymph % (Auto) [place] % (Auto) Eos % (Auto) Baso % (Auto) Neut # (Auto) Lymph # (Auto) [place] # (Auto) Eos # (Auto) Baso # (Auto) Immature Gran # (Auto) Sodium Potassium Chloride Carbon Dioxide Anion Gap BUN Creatinine Est Cr Clr Drug Dosing Est GFR ( Amer) Est GFR (Non-Af Amer) BUN/Creatinine Ratio Glucose Calcium Magnesium Total Bilirubin AST ALT Alkaline Phosphatase Total Protein Albumin Globulin Albumin/Globulin Ratio Lipase Urine Color Yellow Urine Appearance Clear Urine pH 8.5 H Ur Specific [place] 1.039 H Urine Protein Negative Urine Glucose (UA) Negative Urine Ketones Negative Urine Blood Negative Urine Nitrite Positive A Urine Bilirubin Negative Urine Urobilinogen Negative Ur Leukocyte Esterase 2+ H Urine WBC (Auto) >30 H Urine RBC (Auto) 0-4 U Hyaline Cast (Auto) 1-5 U Epithel Cells (Auto) 0-5 Urine Bacteria (Auto) 4+ H Stl C. cayetanensis PCR Stool Rotavirus A PCR Stl Adenov F PCR Stool Astrovirus (PCR) Stool Campylobacter PCR Stl C. diff Tox A/B PCR Stool Cryptosporidium PCR Stl E.coli Shiga Tox PCR Stl Enterotoxigenic E PCR Stool EPEC (PCR) Stool EAEC (PCR) Stl E. histolytica PCR Stool Giardia Lamblia PCR Stool Salmonella PCR Stool Sapovirus (PCR) Stl P. shigelloides PCR Stl Shigella/EIEC PCR St Y.enterocolitica PCR Stool Vibrio (PCR) Stl Vibrio cholerae PCR Stl Norovirus GI/GII PCR SARS-CoV-2, RNA, NAAT NEGATIVE 12/13/21 05:08 WBC RBC Hgb Hct MCV MCH MCHC RDW Std Deviation RDW Coeff of Yessy Plt Count MPV Immature Gran % (Auto) Neut % (Auto) Lymph % (Auto) [place] % (Auto) Eos % (Auto) Baso % (Auto) Neut # (Auto) Lymph # (Auto) [place] # (Auto) Eos # (Auto) Baso # (Auto) Immature Gran # (Auto) Sodium 139 Potassium 4.0 Chloride 104 Carbon Dioxide 26 Anion Gap 9 BUN 12 Creatinine 0.55 L Est Cr Clr Drug Dosing 96.8 Est GFR ( Amer) 117.3 Est GFR (Non-Af Amer) 101.2 BUN/Creatinine Ratio 21.8 H Glucose 90 Calcium 8.9 Magnesium 1.9 Total Bilirubin AST ALT Alkaline Phosphatase Total Protein Albumin Globulin Albumin/Globulin Ratio Lipase Urine Color Urine Appearance Urine pH Ur Specific [place] Urine Protein Urine Glucose (UA) Urine Ketones Urine Blood Urine Nitrite Urine Bilirubin Urine Urobilinogen Ur Leukocyte Esterase Urine WBC (Auto) Urine RBC (Auto) U Hyaline Cast (Auto) U Epithel Cells (Auto) Urine Bacteria (Auto) Stl C. cayetanensis PCR Stool Rotavirus A PCR Stl Adenov F 40/41 PCR Stool Astrovirus (PCR) Stool Campylobacter PCR Stl C. diff Tox A/B PCR Stool Cryptosporidium PCR Stl E.coli Shiga Tox PCR Stl Enterotoxigenic E PCR Stool EPEC (PCR) Stool EAEC (PCR) Stl E. histolytica PCR Stool Giardia Lamblia PCR Stool Salmonella PCR Stool Sapovirus (PCR) Stl P. shigelloides PCR Stl Shigella/EIEC PCR St Y.enterocolitica PCR Stool Vibrio (PCR) Stl Vibrio cholerae PCR Stl Norovirus GI/GII PCR SARS-CoV-2, RNA, NAAT PG Care Time/CCT Total # of Minutes Spent Total Time Spent with Patient: Total time spent is greater than 50% in coordination of care (as documented) at patient's floor/unit and/or counseling patient: Coding Level of Care Code 82357 Subseq Hosp Care Lvl 2 Diagnoses Acute diverticulitis K57.92 Hyperlipidemia E78.5 Hypothyroidism E03.9 Anxiety F41.9 DVT prophylaxis Z29.9
[2021-12-13] MEDS: busPIRone 5 MG TAB PO SCH ×2 (08:54→21:20)
[2021-12-13] MEDS: CIPROFLOXACIN / D5W 400 MG/200 ML BAG IV SCH ×2 (10:44→22:02)
--- NOTE | 2021-12-13 11:05 | Surgery Progress Note ---
Date of Service December 13, 2021 Assessment & Plan (1) Acute diverticulitis: Plan: 61-year-old woman with acute diverticulitis with microperforation and 1.4 cm abscess in the mesentery. No surgical intervention is required at this time. The abscess is too small to consider for IR drainage. We will place her on IV antibiotics and monitor. Clear liquid diet. We will follow along. If she fails to improve or worsens, she will need to be rescanned in would potentially be a candidate for interventional radiology drainage. We will continue to follow. 12/13/2021, 11: 05AM, Dr. Johnson, F/U diverticulitis with small abscess, pt is doing fine, tolerated clear diet, continue iv antibiotic will f/u, Admission and Anticipated Discharge Date Admission Date: December 12, 2021 Subjective Follow-up of abdominal pain, feels better, less pain 12/13/2021 11:03AM, DR. Johnson F/U diverticulitis with small abscess, pt is doing fine, no significant abdominal pain, no fever, tolerated clear diet, Physical Exam Constitutional: WD/WN, vitals as above Eyes: PERRL, conjunctivae normal, anicteric sclerae Neck: trachea midline, no thyromegaly Respiratory: normal respiratory effort, lungs clear to auscultation Cardiovascular: RRR, no murmur, no edema Gastrointestinal (Abdomen): soft, NT, ND, BS +. Neurologic: patellar DTR's 2+ bilat, sensation intact Psychiatric: A+Ox3, euthymic affect Results & Data ([facility]) Vital Signs (Past 12 Hours) Vital Signs Temp Pulse Resp BP Pulse Ox 12/13/21 07:34 36.8 C 82 18 124/[address] OF THE ABDOMEN AND PELVIS WITH CONTRAST CLINICAL HISTORY: Lower abdominal pain. Diverticulitis. COMPARISON STUDY: None. TECHNIQUE: Following IV administration of 93 mL of Optiray, axial images of the abdomen and pelvis were obtained from the lung bases to the proximal femurs. Images were reviewed in the axial, sagittal, and coronal planes. IV contrast was administered without complication. Automated exposure control was utilized for the study. A dose lowering technique was utilized adhering to the principles of ALARA. CT DOSE: 260.05 mGy.cm FINDINGS: Lung bases are unremarkable. No pneumatosis, free air or portal venous gas is present. Liver, spleen, adrenal glands, kidneys are unremarkable. There is no biliary or pancreatic ductal dilatation. Several small hypodense lesions within the pancreas measure near water attenuation. The largest is a 1.3 cm lesion within the pancreatic body on axial image 103 of 396. The appendix is surgically absent. There is extensive sigmoid diverticulosis. Note is made of wall thickening of the mid to distal sigmoid colon with moderate pericolonic stranding and a small amount of fluid. There is an associated 1.4 cm rim- enhancing collection along the wall of the sigmoid colon consistent with a small abscess. No additional fluid collections are present. There is no extraluminal gas. Major vasculature is patent. There is no lymphadenopathy. No acute fracture or suspicious lesion within the visualized skeletal structures is present. There is severe disc space narrowing at L4-L5 with osteophytosis. IMPRESSION: 1. Findings consistent with acute sigmoid diverticulitis. Sigmoid colon wall thickening with moderate inflammation. Small 1.4 cm diverticular abscess. 2. A few small cystic pancreatic lesions. 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 Nonemergent patient pancreatic protocol MRI could be obtained.
--- NOTE | 2021-12-13 15:26 | Emergency Department Note ---
ED Provider Note CHIEF COMPLAINT: Left lower quadrant abdominal pain HISTORY OF PRESENT ILLNESS: This 61-year-old female patient presents to the emergency department presents emergency department with complaints of left lower quadrant abdominal pain. Patient states she has had the pain for about 2 weeks, it was mild at that point then resolved and now has come back. Today it was the most severe it has ever been. She denies any documented fevers however felt sweaty and chilled. She has been nauseated but did not vomit. She denies any blood in the stools. Patient denies any difficulty with urination. REVIEW OF SYSTEMS: A review of systems was performed with positives and pertinent negatives listed in the history of present illness. 10 systems were reviewed and are otherwise negative. ALLERGIES: see below MEDICATIONS: see below PMH: see below SOCIAL HISTORY: see below DDx:Appendicitis, diverticulitis, UTI, obstruction, mesenteric ischemia, aortic pathology, inflammatory bowel disease, renal colic, PUD, pancreatitis, biliary pathology, hernia, volvulus, constipation, as well as other pathologies. PHYSICAL EXAM: Vital signs reviewed. General: Well-appearing 61-year-old female, in no significant distress. HEENT: No scleral icterus, PERRLA, neck supple. Atraumatic. Cardiovascular: Regular rate and rhythm, no extra sounds. Pulmonary: Clear to auscultation bilaterally, normal work of breathing. Abdomen: Soft, nontender, nondistended, positive bowel sounds. Musculoskeletal: Atraumatic, no peripheral edema. Neurologic: Patient awake alert and oriented x 3 Skin: Warm, dry, no rash EMERGENCY DEPARTMENT COURSE/MDM: [] MONITORING: An order for cardiac monitoring was placed and the patient is noted to be in a normal sinus rhythm at 82 beats per minute. RADIOLOGY: See below DISPOSITION: Past Med/Surg History Medical History Anxiety Colon polyps Hyperlipidemia Hypothyroidism Surgical History H/O colonoscopy 07/29/2019 repeat 5yrs H/O dilation and curettage History of ear surgery S/P appendectomy Family History Father Pure hypercholesterolemia Acute myocardial infarction Mother Diabetes Grandfather Prostate cancer Sister Glaucoma Social History Smoking Status: Never smoker Second Hand Exposure: No; Hx Alcohol Use: Yes Hx Substance Use: No Preferred Language: Frisian Communication Ability: Effective Visual Impairment: No Limitations Hearing Ability: Normal Coordinator Of Evaluation Required: No Beliefs That Will Affect Care: None marital status: Current Living Situation: Spouse current occupational status: employed How many Children do You have: 2 Feels Safe at Home: Yes Childhood Exposure to Second-Hand Smoke: No caffeine: Yes during the past year weight has: remained stable Dental Care, Regularly: Yes Physical Activity Frequency: 5-6 Times per Week Seatbelt Use: always Sunscreen Use: Yes Assistive Devices: Glasses Allergies Allergies Allergy/AdvReac Type Severity Reaction Status Date / Time atorvastatin Allergy Unknown Verified 12/12/21 15:19 simvastatin Allergy Unknown Verified 12/12/21 15:19 amoxicillin AdvReac Mild Hives Verified 12/12/21 11:38 Home Meds Home Medications Medication Instructions Recorded Confirmed buspirone 5 mg tablet 2.5 mg PO BID 12/12/21 12/12/21 rosuvastatin 5 mg tablet 10 mg PO HS 12/12/21 12/12/21 Previous Rx's Medication Instructions Recorded calcium carbonate 600 mg-vitamin 1 cap PO DAILY #90 cap 02/07/19 D3 10 mcg (400 unit) capsule levothyroxine 100 mcg tablet 100 mcg PO DAILY #90 tab 08/18/20 Results & Data (ED) Laboratory Data Result diagrams: 12/13/21 05:08 12/13/21 05:08 Lab Results 12/12/21 12/12/21 12/12/21 Range/Units 09:14 09:14 10:40 WBC 8.88 (4.8-10.8) K/uL RBC 4.29 (4.2-5.4) M/uL Hgb 13.7 (12.0-16.0) g/dL Hct 41.3 (37-47) % MCV 96.3 (80-100) fL MCH 31.9 (25-34) pg MCHC 33.2 (32-36) g/dL RDW Std Deviation 42.9 (36.4-46.3) fL RDW Coeff of Yessy 12.3 (11.5-14.5) % Plt Count 262 (130-400) K/uL MPV 10.4 (7.4-10.4) fL Immature Gran % (Auto) 0.2 % Neut % (Auto) 78.6 % Lymph % (Auto) 13.1 % [place] % (Auto) 6.8 % Eos % (Auto) 1.0 % Baso % (Auto) 0.3 % Neut # (Auto) 6.98 H (1.4-6.5) K/uL Lymph # (Auto) 1.16 L (1.2-3.4) K/uL [place] # (Auto) 0.60 H (0.11-0.59) K/uL Eos # (Auto) 0.09 (0-0.5) K/uL Baso # (Auto) 0.03 (0-0.2) K/uL Immature Gran # (Auto) 0.02 (0.00-0.02) K/uL Sodium 140 (136-145) mmol/L Potassium 4.2 (3.5-5.1) mmol/L Chloride 101 (98-107) mmol/L Carbon Dioxide 32 (21-32) mmol/L Anion Gap 7 (3-11) BUN 13 (6-23) mg/dl Creatinine 0.66 (0.6-1.2) mg/dl Est Cr Clr Drug Dosing 80.7 ml/min Est GFR ( Amer) 110.5 ml/min Est GFR (Non-Af Amer) 95.3 ml/min BUN/Creatinine Ratio 19.7 (10-20) Glucose 75 (70-99(Fasting)) mg/dl Calcium 9.9 (8.5-10.1) mg/dl Total Bilirubin 0.5 (0.2-1.0) mg/dl AST 35 (13-39) U/L ALT 20 (7-52) U/L Alkaline Phosphatase 84 (34-104) U/L Total Protein 7.6 (6.0-8.3) gm/dl Albumin 4.2 (3.4-5.0) gm/dl Globulin 3.4 (2.5-4.0) gm/dl Albumin/Globulin Ratio 1.2 (0.9-2) Lipase 23 (11-82) U/L Urine Color Urine Appearance (Clear) Urine pH (4.5-7.5) Ur Specific [place] (1.000-1.030) Urine Protein (Negative) Urine Glucose (UA) (Negative) Urine Ketones (Negative) Urine Blood (Negative) Urine Nitrite (Negative) Urine Bilirubin (Negative) Urine Urobilinogen (Negative) Ur Leukocyte Esterase (Negative) Urine WBC (Auto) (0-5) /hpf Urine RBC (Auto) (0-4) /hpf U Hyaline Cast (Auto) (0-5) /lpf U Epithel Cells (Auto) (0-5) /lpf Urine Bacteria (Auto) (Negative) Stl C. cayetanensis PCR Not Detected (NotDetected) Stool Rotavirus A PCR Not Detected (NotDetected) Stl Adenov F 40/41 PCR Not Detected (NotDetected) Stool Astrovirus (PCR) Not Detected (NotDetected) Stool Campylobacter PCR Not Detected (NotDetected) Stl C. diff Tox A/B PCR Not Detected (NotDetected) Stool Cryptosporidium PCR Not Detected (NotDetected) Stl E.coli Shiga Tox PCR Not Detected (NotDetected) Stl Enterotoxigenic E PCR Not Detected (NotDetected) Stool EPEC (PCR) Not Detected (NotDetected) Stool EAEC (PCR) Not Detected (NotDetected) Stl E. histolytica PCR Not Detected (NotDetected) Stool Giardia Lamblia PCR Not Detected (NotDetected) Stool Salmonella PCR Not Detected (NotDetected) Stool Sapovirus (PCR) Not Detected (NotDetected) Stl P. shigelloides PCR Not Detected (NotDetected) Stl Shigella/EIEC PCR Not Detected (NotDetected) St Y.enterocolitica PCR Not Detected (NotDetected) Stool Vibrio (PCR) Not Detected (NotDetected) Stl Vibrio cholerae PCR Not Detected (NotDetected) Stl Norovirus GI/GII PCR Not Detected (NotDetected) 12/12/21 Range/Units 10:40 WBC (4.8-10.8) K/uL RBC (4.2-5.4) M/uL Hgb (12.0-16.0) g/dL Hct (37-47) % MCV (80-100) fL MCH (25-34) pg MCHC (32-36) g/dL RDW Std Deviation (36.4-46.3) fL RDW Coeff of Yessy (11.5-14.5) % Plt Count (130-400) K/uL MPV (7.4-10.4) fL Immature Gran % (Auto) % Neut % (Auto) % Lymph % (Auto) % [place] % (Auto) % Eos % (Auto) % Baso % (Auto) % Neut # (Auto) (1.4-6.5) K/uL Lymph # (Auto) (1.2-3.4) K/uL [place] # (Auto) (0.11-0.59) K/uL Eos # (Auto) (0-0.5) K/uL Baso # (Auto) (0-0.2) K/uL Immature Gran # (Auto) (0.00-0.02) K/uL Sodium (136-145) mmol/L Potassium (3.5-5.1) mmol/L Chloride (98-107) mmol/L Carbon Dioxide (21-32) mmol/L Anion Gap (3-11) BUN (6-23) mg/dl Creatinine (0.6-1.2) mg/dl Est Cr Clr Drug Dosing ml/min Est GFR ( Amer) ml/min Est GFR (Non-Af Amer) ml/min BUN/Creatinine Ratio (10-20) Glucose (70-99(Fasting)) mg/dl Calcium (8.5-10.1) mg/dl Total Bilirubin (0.2-1.0) mg/dl AST (13-39) U/L ALT (7-52) U/L Alkaline Phosphatase (34-104) U/L Total Protein (6.0-8.3) gm/dl Albumin (3.4-5.0) gm/dl Globulin (2.5-4.0) gm/dl Albumin/Globulin Ratio (0.9-2) Lipase (11-82) U/L Urine Color Yellow Urine Appearance Clear (Clear) Urine pH 8.5 H (4.5-7.5) Ur Specific [place] 1.039 H (1.000-1.030) Urine Protein Negative (Negative) Urine Glucose (UA) Negative (Negative) Urine Ketones Negative (Negative) Urine Blood Negative (Negative) Urine Nitrite Positive A (Negative) Urine Bilirubin Negative (Negative) Urine Urobilinogen Negative (Negative) Ur Leukocyte Esterase 2+ H (Negative) Urine WBC (Auto) >30 H (0-5) /hpf Urine RBC (Auto) 0-4 (0-4) /hpf U Hyaline Cast (Auto) 1-5 (0-5) /lpf U Epithel Cells (Auto) 0-5 (0-5) /lpf Urine Bacteria (Auto) 4+ H (Negative) Stl C. cayetanensis PCR (NotDetected) Stool Rotavirus A PCR (NotDetected) Stl Adenov F 40/41 PCR (NotDetected) Stool Astrovirus (PCR) (NotDetected) Stool Campylobacter PCR (NotDetected) Stl C. diff Tox A/B PCR (NotDetected) Stool Cryptosporidium PCR (NotDetected) Stl E.coli Shiga Tox PCR (NotDetected) Stl Enterotoxigenic E PCR (NotDetected) Stool EPEC (PCR) (NotDetected) Stool EAEC (PCR) (NotDetected) Stl E. histolytica PCR (NotDetected) Stool Giardia Lamblia PCR (NotDetected) Stool Salmonella PCR (NotDetected) Stool Sapovirus (PCR) (NotDetected) Stl P. shigelloides PCR (NotDetected) Stl Shigella/EIEC PCR (NotDetected) St Y.enterocolitica PCR (NotDetected) Stool Vibrio (PCR) (NotDetected) Stl Vibrio cholerae PCR (NotDetected) Stl Norovirus GI/GII PCR (NotDetected) Administered Medications Acetaminophen (Acetaminophen 325 Mg Tab) 650 mg PO Q4H PRN PRN Reason: Mild Pain Stop: 01/11/22 16:30 Last Admin: 12/13/21 10:48 Dose: 650 mg Documented by: [id number] Buspirone HCl (Buspirone 5 Mg Tab) 5 mg PO BID RAMANA Stop: 01/11/22 20:59 Last Admin: 12/13/21 08:54 Dose: 5 mg Documented by: [id number] Admin: 12/12/21 20:20 Dose: 5 mg Documented by: [id number] Enoxaparin Sodium (Enoxaparin Inj 40 Mg/0.4 Ml Syr) 40 mg SQ Q24H [facility] Stop: 01/12/22 06:59 Last Admin: 12/13/21 06:46 Dose: 40 mg Documented by: [id number] Sodium Chloride (Nss 1000ml) 1,000 mls @ 80 mls/hr IV .[id number] [facility] Stop: 01/11/22 16:30 Last Admin: 12/13/21 06:22 Dose: 80 mls/hr Documented by: [id number] Infusion: 12/13/21 05:36 Dose: 80 mls/hr Documented by: [id number] Admin: 12/12/21 17:06 Dose: 80 mls/hr Documented by: [id number] Ciprofloxacin (Cipro / D5w) 400 mg in 200 mls @ 100 mls/hr IV Q12H [facility]; Protocol Stop: 12/22/21 16:30 Last Infusion: 12/13/21 13:05 Dose: 0 mls/hr Documented by: [id number] Admin: 12/13/21 10:44 Dose: 100 mls/hr Documented by: [id number] Infusion: 12/13/21 01:47 Dose: 0 mls/hr Documented by: [id number] Admin: 12/12/21 23:18 Dose: 100 mls/hr Documented by: [id number] Metronidazole (Flagyl) 500 mg in 100 mls @ 100 mls/hr IV Q8H [facility] Stop: 12/22/21 16:30 Last Infusion: 12/13/21 10:38 Dose: 0 mls/hr Documented by: [id number] Admin: 12/13/21 09:02 Dose: 100 mls/hr Documented by: [id number] Infusion: 12/13/21 04:04 Dose: 0 mls/hr Documented by: [id number] Admin: 12/13/21 01:37 Dose: 100 mls/hr Documented by: [id number] Infusion: 12/12/21 18:56 Dose: 0 mls/hr Documented by: [id number] Admin: 12/12/21 17:39 Dose: 100 mls/hr Documented by: [id number] Levothyroxine Sodium (Levothyroxine Sodium 100 Mcg Tablet) 100 mcg PO DAILYBB [facility] Stop: 01/12/22 06:29 Last Admin: 12/13/21 06:21 Dose: 100 mcg Documented by: [id number] Rosuvastatin Calcium (Rosuvastatin Calcium 5 Mg Tab) 5 mg PO HS RAMANA Stop: 01/11/22 20:59 Last Admin: 12/12/21 20:20 Dose: 5 mg Documented by: [id number] Discontinued Medications Sodium Chloride (Nss 1000ml) 1,000 mls @ 125 mls/hr IV .Q8H STA Stop: 12/12/21 17:21 Last Infusion: 12/12/21 17:47 Dose: 0 mls/hr Documented by: [id number] Admin: 12/12/21 09:33 Dose: 125 mls/hr Documented by: [id number] Ciprofloxacin (Cipro / D5w) 400 mg in 200 mls @ 100 mls/hr IV NOW STA; Protocol Stop: 12/12/21 12:50 Last Infusion: 12/12/21 14:55 Dose: 0 mls/hr Documented by: [id number] Admin: 12/12/21 12:19 Dose: 100 mls/hr Documented by: [id number] Metronidazole (Flagyl) 500 mg in 100 mls @ 100 mls/hr IV NOW STA Stop: 12/12/21 11:50 Last Infusion: 12/12/21 12:19 Dose: 0 mls/hr Documented by: [id number] Admin: 12/12/21 11:09 Dose: 100 mls/hr Documented by: [id number] Ioversol (Optiray 320 100ml) 93 ml IV ONCE ONE Stop: 12/12/21 09:54 Last Admin: 12/12/21 09:56 Dose: 93 ml Documented by: [id number] Morphine Sulfate (Morphine Sulfate 4 Mg/Ml 1 Ml Carp\Vial) 2 mg IV NOW STA Stop: 12/12/21 09:23 Last Admin: 12/12/21 10:45 Dose: Not Given Documented by: [id number] Ondansetron HCl (Ondansetron Inj 2 Mg/Ml 2 Ml Vial) 4 mg IV NOW STA Stop: 12/12/21 09:23 Last Admin: 12/12/21 10:45 Dose: Not Given Documented by: [id number] Discharge Plan Visit Data Chief Complaint: Abdominal Pain Stated Complaint: LOW ABDOMINAL PAIN ED Provider: Mariah Rocha Patient Disposition: Admitted As Inpatient Discharge Instructions Interventions: ED Discharge Assessment Last Done: 12/12/21 16:12
[2021-12-13] MEDS: ROSUVASTATIN CALCIUM 5 MG TAB PO SCH (21:20)
[2021-12-14] MEDS ORDERED: GADOBUTROL 65ML VIAL IV ONE (00:39)
[2021-12-14] MEDS: metroNIDAZOLE 500 MG/100 ML BAG IV SCH ×2 (00:49→08:55)
[2021-12-14] MEDS: SODIUM CHLORIDE 0.9% 1000ML 1,000 ML IV SCH (04:44)
[2021-12-14] MEDS: LEVOTHYROXINE SODIUM 100 MCG TABLET PO SCH (06:19)
[2021-12-14] MEDS: ENOXAPARIN INJ 40 MG/0.4 ML SYR SQ SCH (06:19)
[2021-12-14 06:38] LABS: Basophils # (auto) 0.05 K/uL (0-0.2); Basophils % (auto) 1.2 %; Eosinophils # (auto) 0.17 K/uL (0-0.5); Eosinophils % (auto) 4.2 %; Hematocrit (blood only) 37.3 % (37-47); Hemoglobin 12.2 g/dL (12.0-16.0); Immature Granulocytes # (auto) 0.01 K/uL (0.00-0.02); Immature Granulocytes % (auto) 0.2 %; Lymphocytes # (auto) 1.48 K/uL (1.2-3.4); Lymphocytes % (auto) 36.7 %; Mean Corpuscular Hemoglobin 31.3 pg (25-34); Mean Corpuscular Hgb Conc 32.7 g/dL (32-36); Mean Corpuscular Volume 95.6 fL (80-100); Mean Platelet Volume 10.2 fL (7.4-10.4); Monocytes # (auto) 0.36 K/uL (0.11-0.59); Monocytes % (auto) 8.9 %; Neutrophils # (auto) 1.96 K/uL (1.4-6.5); Neutrophils % (auto) 48.8 %; Platelet Count 261 K/uL (130-400); RDW Coefficient of Variation 12.2 % (11.5-14.5); RDW Standard Deviation 42.3 fL (36.4-46.3); White Blood Count 4.03 K/uL (4.8-10.8)
[2021-12-14 07:03] LABS: Albumin Globulin Ratio 1.3 (0.9-2); Albumin Level 3.5 gm/dl (3.4-5.0); Bilirubin,Total 0.4 mg/dl (0.2-1.0); Calcium 8.7 mg/dl (8.5-10.1); Creatinine Clr Calc Pharmacy 100.4 ml/min; Est GFR (African American) 118.8 ml/min; Est GFR (Non-African American) 102.5 ml/min; Globulin 2.7 gm/dl (2.5-4.0); Magnesium 1.9 mg/dl (1.7-2.4); Phosphorus 3.3 mg/dl (2.5-4.9); Potassium 3.6 mmol/L (3.5-5.1); Total Protein 6.2 gm/dl (6.0-8.3)
[2021-12-14] MEDS: busPIRone 5 MG TAB PO SCH ×2 (08:54→20:56)
[2021-12-14] MEDS: CIPROFLOXACIN 500 MG TAB PO SCH ×2 (10:25→20:55)
--- NOTE | 2021-12-14 12:10 | Surgery Progress Note ---
Date of Service December 14, 2021 Assessment & Plan (1) Acute diverticulitis: Plan: 61-year-old woman with acute diverticulitis with microperforation and 1.4 cm abscess in the mesentery. -afebrile, vss - no leukocytosis - abdominal pain has resolved - + bowel function Plan: No surgical intervention required at this time. Diet being advanced to fulls for lunch and further at dinner time Antibiotics transitioned to oral She will need 14 days total of antibiotics for the microperforation and abscess Low fiber diet recommended for 2-4 weeks will need colonoscopy in 6-8 weeks surgery signing off, please call with questions/concerns Dr. Johnson was present during my examination and agrees with above Admission and Anticipated Discharge Date Admission Date: December 12, 2021 Subjective feeling good, no abdominal pain no n,v tolerating clear liquids passing flatus and bowel movements, no bloody stools Physical Exam Constitutional: WD/WN, vitals as above no acute distress and not ill appearing Neck: normal visual inspection and trachea midline Respiratory: normal respiratory effort; no respiratory distress Gastrointestinal (Abdomen): Inspection/Auscultation: abdomen normal to inspection and normal bowel sounds; abdomen not distended Percussion/Palpation: abdomen soft; abdomen nontender, no guarding and abdomen not rigid Skin: no rashes, warm and dry Psychiatric: A+Ox3, euthymic affect Results & Data ([facility]) Vital Signs (Past 12 Hours) Vital Signs Temp Pulse Resp BP Pulse Ox 12/14/21 07:35 36.7 C 79 16 133/82 98 Laboratory Results 12/14/21 12/14/21 Range/Units 05:40 05:40 WBC 4.03 L (4.8-10.8) K/uL RBC 3.90 L (4.2-5.4) M/uL Hgb 12.2 (12.0-16.0) g/dL Hct 37.3 (37-47) % MCV 95.6 (80-100) fL MCH 31.3 (25-34) pg MCHC 32.7 (32-36) g/dL RDW Std Deviation 42.3 (36.4-46.3) fL RDW Coeff of Yessy 12.2 (11.5-14.5) % Plt Count 261 (130-400) K/uL MPV 10.2 (7.4-10.4) fL Immature Gran % (Auto) 0.2 % Neut % (Auto) 48.8 % Lymph % (Auto) 36.7 % [place] % (Auto) 8.9 % Eos % (Auto) 4.2 % Baso % (Auto) 1.2 % Neut # (Auto) 1.96 (1.4-6.5) K/uL Lymph # (Auto) 1.48 (1.2-3.4) K/uL [place] # (Auto) 0.36 (0.11-0.59) K/uL Eos # (Auto) 0.17 (0-0.5) K/uL Baso # (Auto) 0.05 (0-0.2) K/uL Immature Gran # (Auto) 0.01 (0.00-0.02) K/uL Sodium 141 (136-145) mmol/L Potassium 3.6 (3.5-5.1) mmol/L Chloride 108 H (98-107) mmol/L Carbon Dioxide 26 (21-32) mmol/L Anion Gap 7 (3-11) BUN 7 (6-23) mg/dl Creatinine 0.53 L (0.6-1.2) mg/dl Est Cr Clr Drug Dosing 100.4 ml/min Est GFR ( Amer) 118.8 ml/min Est GFR (Non-Af Amer) 102.5 ml/min Fasting Glucose 83 (70-99) mg/dl Calcium 8.7 (8.5-10.1) mg/dl Phosphorus 3.3 (2.5-4.9) mg/dl Magnesium 1.9 (1.7-2.4) mg/dl Total Bilirubin 0.4 (0.2-1.0) mg/dl AST 18 (13-39) U/L ALT 12 (7-52) U/L Alkaline Phosphatase 62 (34-104) U/L Total Protein 6.2 (6.0-8.3) gm/dl Albumin 3.5 (3.4-5.0) gm/dl Globulin 2.7 (2.5-4.0) gm/dl Albumin/Globulin Ratio 1.3 (0.9-2)
--- NOTE | 2021-12-14 12:27 | Magnetic Resonance Report ---
MR abdomen wo/w con CLINICAL HISTORY: pancreatic protocol COMPARISON: Comparison is made to CT abdomen pelvis 12/12/2021 TECHNIQUE: Multiplanar multisequence images were obtained of the abdomen with and without the adminis tration of contrast. FINDINGS: Lower chest: No acute abnormality Liver: Unremarkable. No focal lesions are seen. Gallbladder and biliary tree: A phrygian cap is incidentally noted. Gallbladder is otherwise unremark able. No intra- or extrahepatic biliary ductal dilation. Pancreas: Multiple cysts are seen which demonstrate sidebranch connections to the main pancreatic loli t. These measure up to 11 mm the tail. Spleen: Unremarkable. Adrenals: Unremarkable. Kidneys and ureters: Tiny renal cyst is noted in the right. Bowel: Unremarkable. Lymph nodes Retroperitoneal: Unremarkable. Mesenteric: Unremarkable. Peritoneum: Normal Vessels: Unremarkable. Abdominal wall: Unremarkable. Bones: Unremarkable. IMPRESSION: Multiple pancreatic cysts demonstrate continuity with the main pancreatic duct compatible with side b ranch IPMN. According to [place] criteria, MRCP can be performed in 6 and 12 months, then annually fo r 2 years, then every 2 years if unchanged. ACT 112: Negative or not required by law. Electronically signed by: Doyle Maier M.D. 12/14/2021 12:24 PM
[2021-12-14] MEDS: metroNIDAZOLE 500 MG TAB PO SCH ×2 (15:10→20:56)
--- NOTE | 2021-12-14 15:59 | Hospitalist Progress Note ---
Date of Service December 14, 2021 Assessment & Plan (1) Acute diverticulitis: Plan: Doing better, advance diet; switch to p.o. antibioticsgood oral bioavailability; stop IV fluids (2) Hyperlipidemia: Plan: - Continue statin (3) Hypothyroidism: Plan: TSH was 1.7 in 02/2021. No signs/symptoms of hypo-/hyperthyroidism. - Continue home Synthroid 100 mcg (4) Anxiety: Plan: - Continue buspirone (5) DVT prophylaxis: Plan: Lovenox 40 mg SQ daily (6) IPMN (intraductal papillary mucinous neoplasm): Plan: Discussed MRI results; discussed malignant potential and need for follow- upoutpatient GI; also needs follow-up colonoscopy as noted by surgery Plan: Observe mild leukopenia Admission and Anticipated Discharge Date Admission Date: December 12, 2021 Subjective Follow-up of presentation with left lower quadrant paindoing well; tolerating clear liquids Physical Exam Physical Exam: Constitutional and general: No acute distress, looks biologic age Head and face: No puffiness, atraumatic Eyes: No scleral icterus, extraocular movements normal Neck: Supple, no JVD Musculoskeletal: No acute joint swelling, no bony abnormalities Skin/dermatologic/integument: No rash, no purpura Hematologic and lymphatic: pallor +, no petechia Gastrointestinal/abdomen: Nondistended, soft, nonacute Neurologic: Cranial nerves intact, nonfocal Psychiatry: Awake, alert, pleasant, communicative Cardiovascular: Heart rhythm regular, no rub, no murmur, no gallop Respiratory: Chest movements equal, no use of accessory muscles, no adventitious sounds Extremities: No edema, no cyanosis Results & Data Results & Data ([facility]) Vital Signs (Past 12 Hours) Vital Signs Temp Pulse Resp BP Pulse Ox 12/14/21 15:11 36.4 C L 78 16 117/73 94 12/14/21 07:35 36.7 C 79 16 133/82 98 Laboratory Results Laboratory Results - last 24 hr 12/14/21 12/14/21 05:40 05:40 WBC 4.03 L RBC 3.90 L Hgb 12.2 Hct 37.3 MCV 95.6 MCH 31.3 MCHC 32.7 RDW Std Deviation 42.3 RDW Coeff of Yessy 12.2 Plt Count 261 MPV 10.2 Immature Gran % (Auto) 0.2 Neut % (Auto) 48.8 Lymph % (Auto) 36.7 [place] % (Auto) 8.9 Eos % (Auto) 4.2 Baso % (Auto) 1.2 Neut # (Auto) 1.96 Lymph # (Auto) 1.48 [place] # (Auto) 0.36 Eos # (Auto) 0.17 Baso # (Auto) 0.05 Immature Gran # (Auto) 0.01 Sodium 141 Potassium 3.6 Chloride 108 H Carbon Dioxide 26 Anion Gap 7 BUN 7 Creatinine 0.53 L Est Cr Clr Drug Dosing 100.4 Est GFR ( Amer) 118.8 Est GFR (Non-Af Amer) 102.5 Fasting Glucose 83 Calcium 8.7 Phosphorus 3.3 Magnesium 1.9 Total Bilirubin 0.4 AST 18 ALT 12 Alkaline Phosphatase 62 Total Protein 6.2 Albumin 3.5 Globulin 2.7 Albumin/Globulin Ratio 1.3 PG Care Time/CCT Total # of Minutes Spent Total Time Spent with Patient: Total time spent is greater than 50% in coordination of care (as documented) at patient's floor/unit and/or counseling patient: Coding Level of Care Code 88911 Subseq Hosp Care Lvl 2 Diagnoses Acute diverticulitis K57.92 Hyperlipidemia E78.5 Hypothyroidism E03.9 Anxiety F41.9 DVT prophylaxis Z29.9 IPMN (intraductal papillary mucinous neoplasm) D49.0
[2021-12-14] MEDS: ROSUVASTATIN CALCIUM 5 MG TAB PO SCH (20:55)
[2021-12-15] MEDS: LEVOTHYROXINE SODIUM 100 MCG TABLET PO SCH (05:54)
[2021-12-15] MEDS: metroNIDAZOLE 500 MG TAB PO SCH (05:54)
[2021-12-15] MEDS: ENOXAPARIN INJ 40 MG/0.4 ML SYR SQ SCH (05:55)
[2021-12-15 06:24] LABS: Basophils # (auto) 0.04 K/uL (0-0.2); Eosinophils % (auto) 5.2 %; Hematocrit (blood only) 38.8 % (37-47); Immature Granulocytes # (auto) 0.01 K/uL (0.00-0.02); Immature Granulocytes % (auto) 0.3 %; Lymphocytes # (auto) 1.36 K/uL (1.2-3.4); Lymphocytes % (auto) 35.2 %; Mean Corpuscular Hemoglobin 31.8 pg (25-34); Mean Corpuscular Hgb Conc 33.5 g/dL (32-36); Mean Corpuscular Volume 94.9 fL (80-100); Monocytes # (auto) 0.36 K/uL (0.11-0.59); Monocytes % (auto) 9.3 %; Neutrophils # (auto) 1.89 K/uL (1.4-6.5); Platelet Count 300 K/uL (130-400); RDW Coefficient of Variation 12.1 % (11.5-14.5); RDW Standard Deviation 41.8 fL (36.4-46.3); Red Blood Count 4.09 M/uL (4.2-5.4); White Blood Count 3.86 K/uL (4.8-10.8)
[2021-12-15 06:43] LABS: Albumin Globulin Ratio 1.4 (0.9-2); Albumin Level 3.8 gm/dl (3.4-5.0); Bilirubin,Total 0.3 mg/dl (0.2-1.0); Calcium 9.1 mg/dl (8.5-10.1); Creatinine Clr Calc Pharmacy 88.7 ml/min; Est GFR (Non-African American) 98.4 ml/min; Globulin 2.7 gm/dl (2.5-4.0); Magnesium 1.9 mg/dl (1.7-2.4); Phosphorus 3.5 mg/dl (2.5-4.9); Potassium 3.6 mmol/L (3.5-5.1); Total Protein 6.5 gm/dl (6.0-8.3)
[2021-12-15] MEDS: CIPROFLOXACIN 500 MG TAB PO SCH (08:28)
[2021-12-15] MEDS: busPIRone 5 MG TAB PO SCH (08:28)
--- NOTE | 2021-12-15 11:43 | Discharge Summary ---
Date of Service December 15, 2021 Admission HPI Per Admitting Provider 61yo F w/ hx of HLD and hypothyroidism who presents with acute diverticulitis. Has been having LLQ pain for about 2 1/2 weeks. Overall, it is intermittent, most often after eating or before defecation. Initially, she attributed it to lactose intolerance as the pain seemed worse after eating ice cream. She would eat it the night before, then wake up with sharp, cramping pains in the morning. It would be severe until she had a bowel movement, then resolve. She would take Advil for the pain as well. However, during the day, she could largely function normally. Yesterday, she ate ice cream and woke up this morning with another round of severe pain worse than priors which prompted her arrival to the ER. She denies nausea, vomiting, or change in appetite. She denies fevers/chills, sweats. She denies any hematochezia or melenic stools. She has had some mildly looser stools, but not consistently diarrhea. Principal Diagnosis Acute diverticulitis with microperforation and mesenteric abscess Discharge Exam Constitutional and general: No acute distress, looks biologic age Head and face: No puffiness, atraumatic Eyes: No scleral icterus, extraocular movements normal Neck: Supple, no JVD Musculoskeletal: No acute joint swelling, no bony abnormalities Skin/dermatologic/integument: No rash, no purpura Hematologic and lymphatic: pallor +, no petechia Gastrointestinal/abdomen: Nondistended, soft, nonacute Neurologic: Cranial nerves intact, nonfocal Psychiatry: Awake, alert, pleasant, communicative Cardiovascular: Heart rhythm regular, no rub, no murmur, no gallop Respiratory: Chest movements equal, no use of accessory muscles, no adventitious sounds Extremities: No edema, no cyanosis Vital Signs Temp Pulse Resp BP Pulse Ox 12/15/21 07:26 36.6 C 68 16 122/76 98 12/14/21 22:47 36.7 C 72 18 107/66 99 12/14/21 15:11 36.4 C L 78 16 117/73 94 Intake and Output 12/14/21 12/15/21 12/15/21 22:59 06:59 14:59 Intake Total 250 / 1190 Output Total 400 / 2225 Balance -150 / -1035 Intake: Oral 250 / 250 Output: Urine 400 / 2225 Discharge Data Allergies Allergy/AdvReac Type Severity Reaction Status Date / Time atorvastatin Allergy Unknown Verified 12/12/21 15:19 lactose Allergy Verified 12/14/21 11:31 simvastatin Allergy Unknown Verified 12/12/21 15:19 amoxicillin AdvReac Mild Hives Verified 12/12/21 11:38 Consultations 12/12/21 11:15 ED Decision to Admit Stat 12/12/21 16:31 Consult General Surgery Routine Ordered Studies 12/12/21 09:22 CT abd pelvis IV con only Stat 12/14/21 00:10 MR abdomen wo/w con Routine Hospital Course (1) Acute diverticulitis: Tolerating diet, ready for discharge; GI follow-up for colonoscopy in about 6 weeks; also requested surgery follow-up (2) Hyperlipidemia: - Continue statin (3) Hypothyroidism: TSH was 1.7 in 02/2021. No signs/symptoms of hypo-/hyperthyroidism. - Continue home Synthroid 100 mcg (4) Anxiety: - Continue buspirone (5) IPMN (intraductal papillary mucinous neoplasm): MRI pancreatic protocol: Multiple pancreatic cysts demonstrate continuity with the main pancreatic duct compatible with side branch IPMN. According to Fukuoka criteria, MRCP can be performed in 6 and 12 months, then annually for 2 years, then every 2 years if unchanged; Need for follow-up discussed with patient, malignant potential discussed. (6) Leucopenia: Mild, can be followed Total Time Total Time Spent Total Time Spent (In Minutes): 35 Discharge Plan Discharge Items Patient Disposition: Home - Self-Care Reason For Visit: ACUTE DIVERTICULITIS Discharge Diagnosis: Acute complicated diverticulitis with microperforation and mesenteric abscess Activity: As commented below Activity Comment: as tolerated Lifting: Wait until after follow-up appointment Non-emergency contact: Primary Care Provider Call non-emergency contact if: your symptoms worsen Follow-up/Referrals: Carlos Nava MD [Physician] - (Request after 2 weeks, seen in house, acute complicated diverticulitis) Fanny Malik MD [Primary Care Provider] - Phil Rachel MD [Physician] - (In about 6 weeks; acute diverticulitis, colonoscopy recommended in 6 to 8 weeks; also, follow-up of pancreatic IPMN's) Diet: Low Fiber and Other - See Diet Comment Diet Comment: Continue prior diet except low fiber for about 4 weeks Addtl Attending Provider Instructions: Follow-up with your primary doctor in about a week and have them check WBC count which is slightly low; also, mention to your primary doctor need for follow-up of 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 Per radiology, according to Fukuoka criteria, MRCP can be performed in 6 and 12 months, then annually for 2 years, then every 2 years if unchanged. Also make sure you mention this to your infertility medical assistant when you follow-up. Pending Studies at Discharge: No Stand-Alone Forms: My [facility] [employer], Smoking Cessation Medications and DC Order Prescriptions: New metronidazole 500 mg Tablet 500 mg PO Q8 Qty: 33 RF: 0 ciprofloxacin HCl 500 mg Tablet 500 mg PO BID Qty: 22 RF: 0 Continued levothyroxine 100 mcg tablet 100 mcg PO DAILY Qty: 90 RF: 3 calcium carbonate-vitamin D3 600 mg(1,500mg) -400 unit capsule 1 cap PO DAILY Qty: 90 RF: 3 buspirone 5 mg tablet 2.5 mg PO BID RF: 0 rosuvastatin 5 mg tablet 10 mg PO HS RF: 0 Discharge Orders: Discharge Order (Routine); Ordered 12/15/21 Ordered By: Denis Castillo Admission Data Admit Date/Time: 12/12/21 11:13 Attending Provider: Denis Csatillo Admit Provider: Vinay Nava Primary Care Provider: Fanny Malik Other Providers: Vinay Nava ; Carlos Nava Coding Level of Care Code D/C DAY MANAGEMENT >30 MINS Diagnoses Acute diverticulitis K57.92 Hyperlipidemia E78.5 Hypothyroidism E03.9 Anxiety F41.9 IPMN (intraductal papillary mucinous neoplasm) D49.0 Leucopenia D72.819
== END 2021-12-15 12:45 | disposition home or self-care (01) | DRG 392 ==
LOC: ED 08:52 → SUATTDRO 11:13 → 3E 11:13